=== PATIENT | male | born 1995 | race Caucasian/White ===

== ENCOUNTER 2023-02-16 16:07 | Emergency (ER) | payer OTHER ==
[~2023-02-16] VITALS: Ht 167.6 cm; Wt 72.6 kg
[2023-02-16 16:14] VITALS: O2SAT 99
[2023-02-16] MEDS ORDERED: SULF1TAB48 PO (16:25)
[2023-02-16] MEDS ORDERED: CEPH500T PO (16:25)
== END 2023-02-16 16:30 | disposition home or self-care (01) ==
LOC: ER 16:07
DX: L03.811 Cellulitis of head [any part, except face] (principal)
CPT/HCPCS: A4663